=== PATIENT | female | born 2000 | race Caucasian/White ===

== ENCOUNTER 2023-08-25 12:56 | Emergency (ER) | payer OTHER, BC, SELFPAY ==
[2023-08-25 12:57] VITALS: BP 116/103; PULSE 78; RESP 16; TEMP 36.3; O2SAT 99; BMI 33.5
--- NOTE | 2023-08-25 13:18 | EX.ED.VIS.EY ---
HPI History of Present Illness Chief Complaint: Eye Problem Detail of Chief Complaint: Right eye chemical exposure at work around noon today. 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 She does wear contacts had a right contact in. It came out when the eye started watering. At work they did wash her eye out. She is complaining of some mild discomfort and swelling. Her right contact is currently not in so she said she cannot really tell if her vision is changed or not. Prior similar symptoms: No Recent Illness/Hospitalization: No PFSH PFSH Medical History no medical history no medical history Allergy/AdvReac Type Severity Reaction Status Date / Time No Known Allergies Allergy Verified 08/25/23 12:59 Surgical History no surgical history no surgical history Social History Smoking Status: Never smoker ROS ROS ED ROS Narrative Denies recent illness. Review of Systems ROS Unobtainable: Denies due to encephalopathy Constitutional Constitutional ED: Denies chills, fever(s) or subjective Eyes Eyes: Reports blurry vision and change in vision ENT ENT ED: Denies ear pain or rhinorrhea Cardiovascular Cardiovascular: Denies chest pain or palpitations Respiratory/Chest Respiratory/Chest: Denies cough or dyspnea Gastrointestinal Gastrointestinal: Denies abdominal pain, constipation, diarrhea, melena, nausea or vomiting Genitourinary Genitourinary ED: Denies dysuria or hematuria Musculoskeletal Musculoskeletal: Denies arthralgias, back pain, myalgias or neck pain Integumentary Denies abscess, Abrasions or rash Neurologic Neurologic: Denies headache(s) Psychiatric Psychiatric: Denies anxiety or depression Endocrine Endocrinology: Denies polydipsia, polyphagia or polyuria Hematologic/Lymphatic Hematologic/Lymphatic: Denies easy bleeding or easy bruising Allergic/Immunologic Allergic/Immunologic ED: Denies mouth swelling, tongue swelling or urticaria EXAM Physical Exam Narrative Exam Narrative: 23-year-old female no acute distress vital signs stable afebrile. H EENT exam pupils round react to light extra motions are intact. Right upper and lower lids are mildly swollen. Right eyes injected and watering. No foreign body. No purulent discharge. No periorbital cellulitis or proptosis. No preauricular lymphadenopathy. Neck nontender. Lungs clear. Heart regular rhythm no murmur rate about 80. Abdomen soft nontender. Moving all 4 extremities. Normal strength. Patient is awake alert. Answer questions following commands. No focal motor deficit. Const Vital Signs: 08/25/23 12:57 Temperature 97.4 F L Temperature Source Temporal Pulse Rate 78 Respiratory Rate 16 Blood Pressure 116/103 H Blood Pressure Mean 107 Pulse Ox 99 Oxygen Delivery Method Room Air Positive well nourished and well developed; Negative for cachectic, contractures or unkempt General Appearance ED: well developed and NAD; Negative for unkempt, cachectic or contractures Nutritional Appearance: Negative for cachectic HEENT atraumatic; Negative for trauma or tenderness Nose: external nose normal Eyes Eyes Narrative: Right eye injected. Watering. Mild swelling in the upper and lower eyelid. Able to open close the eye. Pupils round reactive light. Extra motions intact. No preauricular lymphadenopathy. No proptosis. Neck no lymphadenopathy, supple and no JVD General: Negative for tenderness Resp normal respiratory effort, no retractions, no use of accessory muscles and clear to auscultation bilaterally Cardio regular rate, regular rhythm, S1 normal heart sound, S2 normal heart sound and no murmurs GI non-tender, non-distended and no masses Inspection: Negative for other Auscultation: normoactive bowel sounds Palpation: soft Back/Spine no CVA tenderness General Back: Negative for CVA tenderness Extremity normal to inspection General Extremety ED: Negative for edema General Extremity: Negative for edema Neuro oriented x3, CN's II-XII intact bilaterally and moves all extremities Sensorium / Orientation: alert, oriented to person, oriented to place and oriented to time; Negative for orientation impaired Motor Exam: strength 5/5 throughout; Negative for general weakness or strength abnormal Psych Appearance: Negative for unkempt Attitude: No agitated Mood & Affect: Negative for depressed, anxious or tearful Skin no wounds Lesions: no lesions Rashes: no rashes MDM MDM MDM Narrative Medical decision making narrative: 23-year-old healthy female wears glasses and contacts. With her contacts and today at work when she got cleaning solution that they use on asphalt for the trucks in her right eye. This occurred about noon today. They washed it out at work. We will irrigate her right eye out. I will do a slit-lamp examination of her right eye and visual acuity. She normally wears contacts her right contact is currently out. Exam is consistent with a chemical conjunctivitis. History & Record Review Discussion w/independent historian: Patient Discharge Plan Triage Chief Complaint: Eye Problem ED Provider: Morgan Figueroa Dx/Rx/DC Orders Clinical Impression: Encounter related to worker's compensation claim, Acute chemical conjunctivitis Instructions: Conjunctivitis Caused by Irritation Primary Care Provider: SHANA IRIZARRY Referrals: Everardo Muhammad MD [Med Staff - Active Staff] - As Needed Town Doctor,Out of [Non-Staff] - Activity Restrictions/Additional Instructions: Irrigate your right eye with plain tonight and twice tomorrow. Motrin and Tylenol for pain. Sunglasses to prevent glare. Do not put your contact back in your right eye until it is completely pain-free and the swelling is resolved. The contact will just irritate the eye until it is healed. Follow-up with the eye doctor, Dr. Muhammad, if your vision is not improving. Or your eye is not getting better. Ice to the eye to decrease swelling.
[2023-08-25] MEDS: Fluorescein 1 MG STRIP 1 STRIP RIGHT EYE (13:54)
[2023-08-25] MEDS: Tetracaine 0.5% Ophthalmic Bottle 1 DRP RIGHT EYE (13:54)
[2023-08-25 14:22] VITALS: BP 110/86; PULSE 74; RESP 16; TEMP 36.9; O2SAT 99
== END 2023-08-25 14:23 | disposition home or self-care (01) ==
PROVIDERS: Emergency Provider Emergency Medicine; PCP Family Medicine; Visit Provider Emergency Medicine
DX: H10.211 Acute toxic conjunctivitis, right eye (principal); Z77.098 Contact with and (suspected) exposure to other hazardous, chiefly nonmedicinal, chemicals; Z97.3 Presence of spectacles and contact lenses
CPT/HCPCS: 99284; A4216